=== PATIENT | male | born 1990 | race African-American/Black ===

== ENCOUNTER 2016-08-14 09:46 | Emergency (ER) | payer SELFPAY ==
[~2016-08-14] VITALS: Ht 185.4 cm; Wt 80.0 kg
[~2016-08-14 09:46] MED LIST: DICL75 PO
[2016-08-14 09:47] VITALS: BP 141/81; PULSE 72; RESP 14; TEMP 98.2; O2SAT 98
[2016-08-14] MEDS ORDERED: MAGICADU2 SWISH-SPIT (11:33)
[2016-08-14] MEDS ORDERED: AMOX500T PO (11:33)
[2016-08-14] MEDS ORDERED: IBUP800T23 PO (11:33)
[2016-08-14] MEDS ORDERED: PERI0.126 SWISH-SPIT (11:33)
--- NOTE | 2016-08-14 11:34 | PD ---
HPI Chief Complaint: Oral / Dental Pain or Problem Time Seen by Provider: 11:27 Travel History International Travel<30 days: No Contact w/Intl Traveler<30days: No Traveled to known affect area: No History of Present Illness HPI 25-year-old male presents to emergency Department with complaint of left lower dental pain 2 days. Denies dental trauma. Said he had a root canal to the same tooth a few months ago. Denies facial swelling or erythema. Denies fever , chills, nausea, vomiting. Pain radiates to the left year. Pain is aggravated with eating, palpation, and is constant. No known relieving factors. Has not taken any medications or trying to alleviate symptoms. No known allergies. Denies significant past medical history. Tobacco use daily. No other modifying factors or associated signs and symptoms. PFSH Past Medical History Anxiety: Yes Respiratory: Yes (BRONCHITIS) Social History Alcohol Use: Yes Tobacco Use: Yes (1 PPD X 5 YEARS) Substance Use: No Allergies-Medications (Allergen,Severity, Reaction): Coded Allergies: No Known Allergies (Verified , 08/14/16) Reported Meds & Prescriptions Reported Meds & Active Scripts Active Ibuprofen 800 Mg Tab 800 Mg PO Q6HR PRN Magic Mouthwash Adult Liq (Multi-Ingredient Mouthwash/Gargle) 120 Ml Susp 5 Ml SWISH-SPIT Q3HR PRN Each 5 mL contains: Nystatin 200,000 units, Diphenhydramine 4.25 mg, Viscous Lidocaine 10 mg, Miller syrup 0.8 mL Peridex Liq (Chlorhexidine Gluconate (Mouth) Liq) 0.12% Soln 15 Ml SWISH-SPIT BID 10 Days Amoxicillin 500 Mg Tab 500 Mg PO BID 10 Days Review of Systems Except as stated in HPI: all other systems reviewed are Neg Physical Exam Narrative GENERAL: Well-nourished, well-developed male patient, in no acute distress; afebrile, nontoxic-appearing SKIN: Warm and dry. HEAD: Atraumatic. Normocephalic. No facial edema, erythema, tenderness on palpation. No lymphadenopathy. EYES: Pupils equal and round. No scleral icterus. No injection or drainage. ENT: Mucosa pink and moist. Airway patent. EARS: Bilateral pinnae and external canals appear within normal limits. Bilateral tympanic membranes without erythema, dullness or perforation. MOUTH: Mucous membranes moist, no lesions, tongue and gums appear normal. Left lower tooth #18 with tenderness on palpation; surrounding gingiva without erythema, edema, drainage from a no obvious abscess noted. NECK: Trachea midline. No lymphadenopathy. CARDIOVASCULAR: Regular rate. RESPIRATORY: No accessory muscle use. GASTROINTESTINAL: Flat. MUSCULOSKELETAL: No obvious deformities. No clubbing. No cyanosis. No edema. NEUROLOGICAL: Awake and alert. Oriented 3. No obvious cranial nerve deficits. Motor grossly within normal limits. Normal speech. PSYCHIATRIC: Appropriate mood and affect; insight and judgment normal. Data Data Last Documented VS Vital Signs Date Time Temp Pulse Resp B/P Pulse Ox O2 Delivery O2 Flow Rate FiO2 08/14/16 09:47 98.2 72 14 141/81 98 Orders Ibuprofen (Motrin) (08/14/16 11:45) [facility] Medical Decision Making Medical Screen Exam Complete: Yes Emergency Medical Condition: Yes Medical Record Reviewed: Yes Differential Diagnosis Dentalgia, dental abscess, gingivitis, dental caries Narrative Course 25-year-old male physical exam consistent with a possible dental abscess to tooth #18. The tooth is with tenderness on palpation. No obvious abscess noted. No facial edema or erythema. Patient is afebrile. He denies fever, chills, nausea, vomiting. Tympanic membranes are normal. Patient provided emergency dental information sheet. Ibuprofen administered in the ER. Ibuprofen, amoxicillin, Peridex mouth rinse, Magic mouthwash prescribed for home. Instructed patient to follow up with dentist and he verbalized understanding and agreement. Patient is medically cleared and stable for discharge. Discussed reasons to return to the emergency department. Instructed patient to follow up with primary care provider. Patient agrees with treatment plan. The patients vital signs are stable and the patient is stable for outpatient follow-up and treatment. Patient discharged home, stable and in no acute distress. Diagnosis Primary Impression: Dentalgia Referrals: Dentist Primary Care Physician Patient Instructions: Dental Abscess (ED), General Instructions, Toothache (ED) Additional Instructions: Complete full course of antibiotics Ibuprofen as directed and as needed to reduce pain and inflammation Use Magic mouthwash rinse as directed and as needed to decrease pain Use Peridex as directed for oral hygiene Warm compresses to the affected area Follow-up with dentist Follow-up with primary care provider Return to emergency department immediately with worsening of symptoms Med/Other Pt SpecificInfo: Prescription(s) given Scripts Ibuprofen 800 Mg [id number] Mg PO Q6HR PRN (PAIN) #30 TAB Ref 0 Prov:Giselle Hopper 08/14/16 Fhtdeboc-Ydyrijicsxhabul-Vwrqrtcmw Liq (Magic Mouthwash Adult Liq)120 Ml Susp5 Ml SWISH-SPIT Q3HR PRN (PAIN SCALE 1 TO 10) #120 ML Ref 0 Each 5 mL contains: Nystatin 200,000 units, Diphenhydramine 4.25 mg, Viscous Lidocaine 10 mg, Miller syrup 0.8 mL Prov:Giselle Hopper 08/14/16 Chlorhexidine Gluconate (Mouth) Liq (Peridex Liq)0.12% Soln15 Ml SWISH-SPIT BID 10 Days Ref 0 Prov:Giselle Hopper 08/14/16 Amoxicillin 500 Mg [id number] Mg PO BID 10 Days Ref 0 Prov:Giselle Hopper 08/14/16 Disposition: 01 DISCHARGE HOME Condition: Stable Giselle Hopper Aug 14, 2016 11:34
[2016-08-14] MEDS ORDERED: IBUPROFEN 800 MG TAB PO ONE (11:45)
== END 2016-08-14 11:47 | disposition home or self-care (01) ==
LOC: NEPB 09:46
DX: K08.89 Other specified disorders of teeth and supporting structures (principal); F17.210 Nicotine dependence, cigarettes, uncomplicated
CPT/HCPCS: 99282

== ENCOUNTER 2016-08-15 11:27 | Emergency (ER) | payer SELFPAY ==
[~2016-08-15] VITALS: Ht 172.7 cm; Wt 80.0 kg
[~2016-08-15 11:27] MED LIST changes: +AMOX500T PO; +IBUP800T23 PO; +MAGICADU2 SWISH-SPIT; +PERI0.126 SWISH-SPIT
[2016-08-15 11:46] VITALS: BP 137/79; PULSE 87; RESP 16; TEMP 98.5; O2SAT 99
--- NOTE | 2016-08-15 11:59 | PD ---
HPI Chief Complaint: Medical Clearance Time Seen by Provider: 11:54 Travel History International Travel<30 days: No Contact w/Intl Traveler<30days: No Traveled to known affect area: No History of Present Illness HPI 25-year-old male presents to the emergency department requesting a work release note from work today. 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 He has no emergent medical complaints at this time. No other modifying factors or associated signs and symptoms. History Social History Alcohol Use: Yes Tobacco Use: Yes (1 PPD X 5 YEARS) Allergies-Medications (Allergen,Severity, Reaction): Coded Allergies: No Known Allergies (Verified , 08/14/16) Reported Meds & Prescriptions Reported Meds & Active Scripts Active Ibuprofen 800 Mg Tab 800 Mg PO Q6HR PRN Magic Mouthwash Adult Liq (Multi-Ingredient Mouthwash/Gargle) 120 Ml Susp 5 Ml SWISH-SPIT Q3HR PRN Each 5 mL contains: Nystatin 200,000 units, Diphenhydramine 4.25 mg, Viscous Lidocaine 10 mg, Miller syrup 0.8 mL Peridex Liq (Chlorhexidine Gluconate (Mouth) Liq) 0.12% Soln 15 Ml SWISH-SPIT BID 10 Days Amoxicillin 500 Mg Tab 500 Mg PO BID 10 Days Review of Systems Except as stated in HPI: all other systems reviewed are Neg Physical Exam Narrative GENERAL: Well-nourished, well-developed male patient, in no acute distress SKIN: Warm and dry. HEAD: Atraumatic. Normocephalic. EYES: Pupils equal and round. No scleral icterus. No injection or drainage. ENT: Mucosa pink and moist. Airway patent. NECK: Trachea midline. CARDIOVASCULAR: Regular rate. RESPIRATORY: No accessory muscle use. GASTROINTESTINAL: Flat. MUSCULOSKELETAL: No obvious deformities. No clubbing. No cyanosis. No edema. NEUROLOGICAL: Awake and alert. Oriented 3. No obvious cranial nerve deficits. Motor grossly within normal limits. Normal speech. PSYCHIATRIC: Appropriate mood and affect; insight and judgment normal. Data Data Last Documented VS Vital Signs Date Time Temp Pulse Resp B/P Pulse Ox O2 Delivery O2 Flow Rate FiO2 08/15/16 11:46 98.5 87 16 137/79 99 MDM Medical Screen Exam Complete: Yes Emergency Medical Condition: No Differential Diagnosis Medical clearance, malingering, dentalgia Narrative Course 25-year-old male presents requesting a work release note. I saw this patient yesterday for tooth pain. Apparently he called out of work today and needs a work note to return back to work. I told patient I could print out a work note from yesterdays visit and he declined saying that he has his paperwork from yesterday he just shows work. Vital signs are stable and the patient is stable for outpatient follow-up and treatment. The patient has no urgent or emergent medical complaints. There is no emergent or urgent medical need at this time. I instructed the patient to follow up with their primary care provider. A medical screening exam was performed: At the time of evaluation the presenting medical condition was determined not to be of an emergent nature. The patient was given the option of receiving additional care, but declined. Patient was given options for additional community resources from which to obtain care. The Patient Has Been advised to seek medical attention for their presenting complaint. The patient has been advised to return to the ER at any time if an emergent condition develops. Primary Impression: Encounter for medical screening examination Condition: Stable Giselle Hopper Aug 15, 2016 11:58
== END 2016-08-15 11:55 | disposition left against medical advice (07) ==
LOC: NEPB 11:27
DX: Z02.89 Encounter for other administrative examinations (principal)
CPT/HCPCS: 99281

== ENCOUNTER 2016-12-09 12:22 | Emergency (ER) | payer MEDICAID, OTHER ==
[~2016-12-09] VITALS: Ht 185.4 cm; Wt 81.5 kg
[~2016-12-09 12:22] MED LIST changes: -DICL75 PO
[2016-12-09 12:23] VITALS: BP 148/87; PULSE 14; PULSE 79; RESP 18; TEMP 98.2; O2SAT 98
--- NOTE | 2016-12-09 12:34 | PD ---
Physical Exam Time Seen by Provider: 12:34 Narrative 26 y/o male presents with Right sided ribcage pain today. He attributes it to lifting something heavy yesterday. VSS Seen at triage desk. Awaiting bed placement. Data Data Last Documented VS Vital Signs Date Time Temp Pulse Resp B/P Pulse Ox O2 Delivery O2 Flow Rate FiO2 12/09/16 12:23 98.2 79 18 148/87 98 MDM Medical Record Reviewed: Yes Supervised Visit with RICARDO: Tucker Wallace December 09, 2016 12:34
[2016-12-09] MEDS ORDERED: METHOCARBAMOL 500 MG TAB PO ONE (13:00)
[2016-12-09] MEDS ORDERED: IBUPROFEN 800 MG TAB PO ONE (13:00)
[2016-12-09] MEDS ORDERED: IBUP800T23 PO (13:15)
[2016-12-09] MEDS ORDERED: ROBA500T PO (13:15)
--- NOTE | 2016-12-09 13:15 | PD ---
HPI Chief Complaint: Musculoskeletal Complaint Time Seen by Provider: 12:58 Travel History International Travel<30 days: No Contact w/Intl Traveler<30days: No Traveled to known affect area: No History of Present Illness HPI 26-year-old male presents to the emergency Department with complaint of right- sided rib cage pain after lifting heavy boxes and moving yesterday. Denies falling or traumatic injury. He says the pain is worse when he takes a deep breath and moves. Reports feeling a little short of breath when he does activity secondary to the pain. Denies hemoptysis, hematemesis, nausea, vomiting. Denies fever. Has not taken any medications or tried nature [place] symptoms. No known allergies. Has no other medical complaints. No modifying factors or associated signs and symptoms. PFSH Past Medical History Anxiety: Yes Respiratory: Yes (BRONCHITIS) Social History Alcohol Use: Yes Tobacco Use: Yes (1 PPD X 5 YEARS) Substance Use: No Allergies-Medications (Allergen,Severity, Reaction): Coded Allergies: No Known Allergies (Verified , 12/09/16) Reported Meds & Prescriptions Reported Meds & Active Scripts Active Robaxin (Methocarbamol) 500 Mg Tab 500 Mg PO QID PRN Ibuprofen 800 Mg Tab 800 Mg PO Q6HR PRN Review of Systems Except as stated in HPI: all other systems reviewed are Neg Physical Exam Narrative GENERAL: Well-nourished, well-developed male patient, in no acute distress SKIN: Warm and dry. HEAD: Atraumatic. Normocephalic. EYES: Pupils equal and round. No scleral icterus. No injection or drainage. ENT: Mucosa pink and moist. NECK: Trachea midline. CHEST:Reproducible tenderness to the right lower rib cage at approximately the 10th and 11th ribs; areas without crepitance or deformity. Pain is reproducible around to the back of the rib cage and to the musculature of the back. No retractions or use of accessory muscles. CARDIOVASCULAR: Regular rate and rhythm. No murmur appreciated. RESPIRATORY: No accessory muscle use. Clear to auscultation. Breath sounds equal bilaterally. GASTROINTESTINAL: Abdomen soft, non-tender, nondistended. Hepatic and splenic margins not palpable. Bowel sounds are active 4 quadrants. MUSCULOSKELETAL: No obvious deformities. No clubbing. No cyanosis. No edema. NEUROLOGICAL: Awake and alert. Oriented 3. No obvious cranial nerve deficits. Motor grossly within normal limits. Normal speech. Moves all extremities. 5/5 strength to all extremities. PSYCHIATRIC: Appropriate mood and affect; insight and judgment normal. Data Data Last Documented VS Vital Signs Date Time Temp Pulse Resp B/P Pulse Ox O2 Delivery O2 Flow Rate FiO2 12/09/16 12:23 98.2 79 18 148/87 98 Orders Methocarbamol (Robaxin) (12/09/16 13:00) Ibuprofen (Motrin) (12/09/16 13:00) Chest, Pa & Lat (12/09/16 12:56) MDM Medical Decision Making Medical Screen Exam Complete: Yes Emergency Medical Condition: Yes Medical Record Reviewed: Yes Differential Diagnosis Muscle strain, muscle spasm, costochondritis Narrative Course 26-year-old male physical exam most likely consistent with a muscle strain from lifting heavy boxes and moving yesterday. The pain is from the right lower rib cage and wraps around to the musculature of the back. There is no crepitance or deformity to the rib cage. The patient is complaining of pain with breathing and feeling short of breath with activity secondary to the pain. Allergies chest x-ray to rule out any acute findings. Ibuprofen and Robaxin administered in the ER. Chest x-ray ordered. 1402: Chest x-ray with no acute findings. Ibuprofen and Robaxin prescribed for home. Patient verbalizes understanding and agreement with treatment plan. Patient is medically cleared and stable for discharge. Discussed reasons to return to the emergency department. Instructed patient to follow up with primary care provider. Patient agrees with treatment plan. The patients vital signs are stable and the patient is stable for outpatient follow-up and treatment. Patient discharged home, stable and in no acute distress. Diagnosis Primary Impression: Muscle strain of chest wall Qualified Code: S29.011A - Muscle strain of chest wall, initial encounter Referrals: Primary Care Physician Patient Instructions: General Instructions, Muscle Spasm (ED), Muscle Strain ( ED) Departure Forms: Tests/Procedures, Work Release Enter return to work date: December 11, 2016 Additional Instructions: Ibuprofen or Tylenol as directed and as needed to reduce pain Robaxin as prescribed and as needed to reduce muscle spasms Heating pad and/or ice to affected area to reduce pain Avoid aggravating activities; increase activity as tolerated Gentle stretching to the affected muscle may be helpful Follow-up with a primary care provider Return to the emergency department immediately with worsening of symptoms Med/Other Pt SpecificInfo: Prescription(s) given Scripts Methocarbamol (Robaxin)500 Mg [id number] Mg PO QID PRN (MUSCLE SPASM) #30 TAB Ref 0 Prov:Giselle Hopper 12/09/16 Ibuprofen 800 Mg [id number] Mg PO Q6HR PRN (PAIN) #30 TAB Ref 0 Prov:Giselle Hopper 12/09/16 Disposition: 01 DISCHARGE HOME Condition: Stable Giselle Hopper December 09, 2016 13:15
--- NOTE | 2016-12-09 13:55 | RADRPT ---
EXAM DATE/TIME: 12/09/2016 13:39 [facility] COMPARISON: No previous studies available for comparison. INDICATIONS : Right side chest pain after lifting something and shortness of breath. MEDICAL HISTORY : None. SURGICAL HISTORY : None. ENCOUNTER: Initial ACUITY: 2 days PAIN SCORE: 7/10 LOCATION: Bilateral chest FINDINGS: PA and lateral views of the chest demonstrate the lungs to be symmetrically aerated without evidence of mass, infiltrate or effusion. The cardiomediastinal contours are unremarkable. Osseous structure s are intact. CONCLUSION: Normal examination. Kem Alejandro Jr., MD on December 09, 2016 at 13:53 Board Certified Radiologist. This report was verified electronically.
[2016-12-09 14:15] VITALS: RESP 20
== END 2016-12-09 14:23 | disposition home or self-care (01) ==
LOC: NEPK 12:22
DX: S29.011A Strain of muscle and tendon of front wall of thorax, initial encounter (principal); R06.02 Shortness of breath; X50.0XXA Overexertion from strenuous movement or load, initial encounter; Y93.9 Activity, unspecified; Y92.9 Unspecified place or not applicable; Y99.8 Other external cause status
CPT/HCPCS: 71020; 99283

== ENCOUNTER 2017-02-12 13:32 | Emergency (ER) | payer MEDICAID ==
[~2017-02-12] VITALS: Ht 185.4 cm; Wt 82.0 kg
[~2017-02-12 13:32] MED LIST changes: -AMOX500T PO; -MAGICADU2 SWISH-SPIT; -PERI0.126 SWISH-SPIT; +ROBA500T PO
[2017-02-12 13:34] VITALS: BP 133/79; PULSE 92; RESP 20; TEMP 98.6; O2SAT 98
--- NOTE | 2017-02-12 14:52 | PD ---
HPI Chief Complaint: Respiratory Symptoms Time Seen by Provider: 14:52 Travel History International Travel<30 days: No Contact w/Intl Traveler<30days: No Traveled to known affect area: No History of Present Illness HPI 26-year-old male presents to the emergency Department with complaint of shortness of breath, cough since yesterday. Reports the pain in his back when he takes a deep breath. Denies feeling short of breath at this time. Says his cough is been better today also. Denies chest pain. Denies fever, vomiting. Denies nasal congestion, sore throat, ear pain. Denies hemoptysis. Denies history of asthma. Reports tobacco use daily. Has not taken any medications or treatment she wants to leave a symptoms. No known allergies. Has no other medical complaints. No other modified factors or associated signs and symptoms. PFSH Past Medical History Anxiety: Yes Respiratory: Yes (BRONCHITIS) Social History Alcohol Use: Yes Tobacco Use: Yes (1 PPD X 5 YEARS) Substance Use: No Allergies-Medications (Allergen,Severity, Reaction): Coded Allergies: No Known Allergies (Verified , 02/12/17) Reported Meds & Prescriptions Reported Meds & Active Scripts Active Robaxin (Methocarbamol) 500 Mg Tab 500 Mg PO QID PRN Ibuprofen 800 Mg Tab 800 Mg PO Q6HR PRN Review of Systems Except as stated in HPI: all other systems reviewed are Neg Physical Exam Narrative GENERAL: Well-nourished, well-developed male patient, in no acute distress SKIN: Warm and dry. HEAD: Atraumatic. Normocephalic. EYES: Pupils equal and round. No scleral icterus. No injection or drainage. ENT: Mucosa pink and moist. Airway patent. NECK: Trachea midline. CARDIOVASCULAR: Regular rate and rhythm. No murmur appreciated. RESPIRATORY: No accessory muscle use. Clear to auscultation; decreased in bilateral bases. Breath sounds equal bilaterally. GASTROINTESTINAL: Abdomen soft, non-tender, nondistended. Hepatic and splenic margins not palpable. Bowel sounds are active 4 quadrants. MUSCULOSKELETAL: No obvious deformities. No clubbing. No cyanosis. No edema. NEUROLOGICAL: Awake and alert. Oriented 3. No obvious cranial nerve deficits. Motor grossly within normal limits. Normal speech. PSYCHIATRIC: Appropriate mood and affect; insight and judgment normal. Data Data Last Documented VS Vital Signs Date Time Temp Pulse Resp B/P Pulse Ox O2 Delivery O2 Flow Rate FiO2 02/12/17 13:34 98.6 92 20 133/79 98 Room Air Orders Chest, Single Ap (02/12/17 14:36) Albuterol Neb (Albuterol Neb) (02/12/17 15:00) MDM Medical Decision Making Medical Screen Exam Complete: Yes Emergency Medical Condition: Yes Medical Record Reviewed: Yes Differential Diagnosis Bronchitis, pneumonia, less likely PE Narrative Course AMA: The risks of leaving against medical advice without further evaluation treatment were discussed with the patient. These risks include cardiac dysfunction, cardiac dysrhythmia, possible heart attack, possible stroke or . The patient indicated understanding of these risks and appeared to have the capacity to make this decision. Diagnosis Primary Impression: Left against medical advice Disposition: 07 AGAINST MEDICAL ADVICE Giselle Hopper Feb 12, 2017 14:52
[2017-02-12] MEDS ORDERED: RESP: ALBUTEROL 2.5 MG/3 ML NEB (SCH) INH ONE (15:00)
== END 2017-02-12 15:58 | disposition left against medical advice (07) ==
LOC: NEPK 13:32
DX: R06.02 Shortness of breath (principal); R05 Cough; F17.210 Nicotine dependence, cigarettes, uncomplicated
CPT/HCPCS: 99281